=== PATIENT | female | born 1955 ===

== ENCOUNTER 2023-05-22 08:16 | Emergency (ER) | payer SELFPAY ==
[~2023-05-22] VITALS: Ht 157.5 cm; Wt 50.0 kg
[2023-05-22 08:20] VITALS: O2SAT 99
[2023-05-22] MEDS ORDERED: ACETAMINOPHEN 325MG TABLET PO ONE (08:45)
[2023-05-22] MEDS ORDERED: TOPUD MT (10:04)
[2023-05-22 10:54] VITALS: BP 150/83; PULSE 61; RESP 19; TEMP 98.3
== END 2023-05-22 10:55 | disposition home or self-care (01) ==
LOC: ER 08:16
DX: S80.11XA Contusion of right lower leg, initial encounter (principal); V89.2XXA Person injured in unspecified motor-vehicle accident, traffic, initial encounter; Y93.89 Activity, other specified; Y92.89 Other specified places as the place of occurrence of the external cause; Y99.8 Other external cause status
CPT/HCPCS: 72170; 73600; 81025; 99284